=== PATIENT | female | born 1940 | race Caucasian/White ===

== ENCOUNTER 2018-07-31 13:39 | Inpatient (IN) ==
[2018-07-31] MEDS: Amoxicillin 500 MG CAPSULE PO SCH (20:23)
[2018-08-01] MEDS: traMADol 50 MG TABLET PO PRN (05:27)
[2018-08-01 07:49] LABS: Basophils % 0.5 %; Eosinophils # 0.1 K/mcL (0.0-0.6); Eosinophils % 1.2 %; Hematocrit 26.4 % (35.3-44.9); Hemoglobin 8.4 g/dL (11.5-15.4); Immature Granulocytes % 1.4 % (0-4); Lymphocytes # 1.3 K/mcL (0.6-4.6); Lymphocytes % 19.6 %; Mean Corpuscular HGB Conc 31.8 g/dL (31.6-35.5); Mean Corpuscular Hemoglobin 28.9 pg (28.0-33.3); Mean Corpuscular Volume 90.7 fL (83.0-100.0); Monocytes % 15.2 %; Neutrophils # 4.1 K/mcL (1.6-8.9); Nucleated Red Blood Cells 0.5 /100 WBC (0); Platelet Count 232 K/mcL (140-400); Red Blood Count 2.91 M/mcL (3.82-4.97); Red Cell Distribution Width 14.4 % (11.5-14.5); Segmented Neutrophils % 62.1 %; White Blood Count 6.6 K/mcL (4.3-11.1)
[2018-08-01 08:04] LABS: BUN/Creatinine Ratio 15 (6-26); Blood Urea Nitrogen 10 mg/dL (8-23); Calcium 8.5 mg/dL (8.6-10.3); Carbon Dioxide 32 mEq/L (23-29); Chloride 102 mEq/L (98-107); Glucose 98 mg/dL (70-105); Osmolality,Calculated 289 (280-300); Potassium 3.3 mEq/L (3.5-5.1); Sodium 140 mEq/L (136-145); eGFR For African Americans > 60 (> 60); eGFR For Non-African Americans > 60 (> 60)
[2018-08-01] MEDS: *HR* Enoxaparin 40 MG/0.4 ML SYRINGE SQ SCH (09:21)
[2018-08-01] MEDS: Sennosides 8.6 MG TABLET PO SCH (09:21)
[2018-08-01] MEDS: Cyanocobalamin (B-12) 1,000 MCG TABLET PO SCH (09:21)
[2018-08-01] MEDS: Amoxicillin 500 MG CAPSULE PO SCH ×2 (09:21→22:39)
[2018-08-01] MEDS: Ergocalciferol (VIT D2) 50,000 UNIT (1.25MG) CAP PO SCH (09:22)
--- NOTE | 2018-08-01 13:17 | Internal Med History&Physical ---
Date of Encounter: 08/01/18 Time of Encounter: 01:16 Assessment and Plan (1) History of total right hip replacement Current visit: Yes Status: Acute pt will participate in PT OT (2) Malabsorption Current visit: Yes Status: Acute pt has known hx b12 and iron def she has been on these and is anemic will recheck levels she has low K will replace for hypokalemia will check prealbumen and Vit D levels some mechanical eating difficulty will add chop meat diet ensure magic cup functional diarrhea bothersome to pt had lomotil in past will try questran and lactobacillus Qualifiers: Intestinal malabsorption type: other Qualified Code(s): K90.89 - Other intestinal malabsorption Internal Medicine - H&P: HPI Chief complaint: post Right Total hip Replacement Admitted From: Hospital to Hospital Transfer History of present illness: Ms. Ta is a 78 year old female who fell at home and had right total hip replaced. She is transferred here for rehabilitation. She is currently weak and unable to ambulate. She reports she has had some weight loss and she has a history of vitamin deficiencies multiple. 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 Patient reports she had a strangulated ventral hernia that required emergency surgery. She moved from [place] she says previously she had Meals on Wheels but lately has been eating mainly just microwave meals such as [employer] Past[employer]. She does have some functional diarrhea after the surgery. She has had VRE in the urine her Wilkes was removed 3 days ago prior to transfer. She is finishing a course of amoxicillin. She denies dysuria. Her potassium does tend to run low. She is missing her lower teeth and has a denture that is being made. She has a dry mouth it is hard for her to take bites and chew and swallow. She may have some esophageal dysmotility from her history reported. She has chronic stable kidney disease and hypertension. She takes benzodiazepine chronically for anxiety. She has been on B12 and iron she remains anemic with a hemoglobin in the 8 range, no active bleeding. EXam gEN CHRONIC ILL appearing elderly WF HEENT dry mouth no mass noted neck no bruit short thick neck heart reg lungs clear bi abd full soft mild dist scar no umbillicus ext reduced muscle mass bilat no edema Past Med Surg Social Fam HX - Past Medical History Medical history: non-contributory, COPD, hypertension - Past Surgical History Surgical History: non-contributory Additional surgical history: right hip repair - Social History Smoking Status: 2nd Hand Smoke Exposure Smokeless Tobacco Status: No Alcohol use: none Drug use: none Internal Medicine - H&P: Meds Trazodone HCl 100 mg PO HS 11/14/17 [History] ALPRAZolam [Xanax 0.5 MG Tablet] 0.5 mg PO BID PRN 07/31/18 [History] Acetaminophen [Tylenol] 650 mg PO QID PRN 07/31/18 [History] Amoxicillin [Amoxil] 500 mg PO BID 07/31/18 [History] Cyanocobalamin (B-12) [Vitamin B12] 500 mcg PO DAILY 07/31/18 [History] Docusate Sodium [Colace] 100 mg PO PRN PRN 07/31/18 [History] Enoxaparin [Lovenox] 40 mg SQ DAILY 07/31/18 [History] Ergocalciferol (VITAMIN D2) [Vitamin D2] 50,000 unit PO DAILY 07/31/18 [History] Ferrous Sulfate [Iron] 325 mg PO TID 07/31/18 [History] Sennosides [Senna] 8.6 mg PO DAILY 07/31/18 [History] Tramadol HCl [Ultram] 50 mg PO QID PRN 07/31/18 [History] Allergy/AdvReac Type Severity Reaction Status Date / Time oxycodone [Oxycodone] AdvReac Hallucinati Verified 11/14/17 13:54 ng All Systems PM: A 10-system review of systems was performed and is negative for pertinent findin gs except as documented above in the HPI. - Constitutional Vitals: Temp Pulse Resp BP Pulse Ox 97.8 F 91 16 136/78 93 08/01/18 11:35 08/01/18 11:35 08/01/18 11:35 08/01/18 11:35 08/01/18 11:35 Internal Med - H&P Results - Labs CBC & Chem 7: 08/01/18 07:30 08/01/18 07:30 Labs: Short CBC 08/01/18 Range/Units 07:30 WBC 6.6 (4.3-11.1) K/mcL Hgb 8.4 L (11.5-15.4) g/dL Hct 26.4 L (35.3-44.9) % Plt Count 232 (140-400) K/mcL Neutrophils # 4.1 (1.6-8.9) K/mcL BMP 08/01/18 07:30 Sodium 140 Potassium 3.3 L Chloride 102 Carbon Dioxide 32 H BUN 10 Creatinine 0.65 Glucose 98 Calcium 8.5 L
[2018-08-01] MEDS: Acetaminophen 325 MG TABLET PO PRN (17:25)
[2018-08-01] MEDS: Cholestyramine 4 GM POWD.PACK PO SCH (17:27)
[2018-08-01] MEDS: Lactobacillus 1 EACH CAP.SPRINK PO SCH (22:41)
[2018-08-01] MEDS: Ascorbic Acid 500 MG TABLET PO SCH (22:43)
[2018-08-01] MEDS: traZODone 50 MG TABLET PO SCH (22:44)
[2018-08-02] MEDS: ALPRAZolam 0.5 MG TABLET PO PRN (02:27)
[2018-08-02] MEDS: Amoxicillin 500 MG CAPSULE PO SCH ×2 (09:19→21:20)
[2018-08-02] MEDS: Lactobacillus 1 EACH CAP.SPRINK PO SCH ×2 (09:19→21:20)
[2018-08-02] MEDS: Ascorbic Acid 500 MG TABLET PO SCH ×2 (09:19→21:22)
[2018-08-02] MEDS: Cholestyramine 4 GM POWD.PACK PO SCH ×2 (09:19→18:28)
[2018-08-02] MEDS: Sennosides 8.6 MG TABLET PO SCH (09:20)
[2018-08-02] MEDS: Cyanocobalamin (B-12) 1,000 MCG TABLET PO SCH (09:20)
[2018-08-02] MEDS: *HR* Enoxaparin 40 MG/0.4 ML SYRINGE SQ SCH (09:21)
[2018-08-02] MEDS: traMADol 50 MG TABLET PO PRN (09:39)
[2018-08-02 12:14] LABS: % Iron Saturation 15 % (15-50); Iron 46 mcg/dL (50-170); Transferrin 223 mg/dL (203-362)
[2018-08-02] MEDS: Diphenoxylate/Atropine 1 TAB TABLET PO PRN (14:13)
--- NOTE | 2018-08-02 18:16 | Internal Med Progress Note ---
Date of Encounter: 08/02/18 Time of Encounter: 17:00 - Assessment and plan (1) History of total right hip replacement Current Visit: Yes Status: Acute (2) Malabsorption Current Visit: Yes Status: Acute Qualifiers: Intestinal malabsorption type: other Qualified Code(s): K90.89 - Other intestinal malabsorption - Subjective Interval history: (1) History of total right hip replacement Current visit: Yes Status: Acute pt will participate in PT OT doing better with wt bearing had been increase sedentary prior to hip fx (2) Malabsorption Current visit: Yes Status: Acute pt has known hx b12 and iron def she has been on these and is anemic levels checked and ok continue oral replacement add GI protection she has low K will replace for hypokalemia will check prealbumen and Vit D levels some mechanical eating difficulty will add chop meat diet ensure magic cup functional diarrhea bothersome to pt had lomotil in past just added questran and lactobacillus Qualifiers: Intestinal malabsorption type: other Qualified Code(s): K90.89 - Other intestinal malabsorption Interval hx Ms. Ta is a 78 year old female who fell at home and had right total hip replaced. She is transferred here for rehabilitation. She is currently weak and unable to ambulate. She reports she has had some weight loss and she has a history of vitamin deficiencies multiple. 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 Patient reports she had a strangulated ventral hernia that required emergency surgery. She moved from [place] she says previously she had [employer]als [employer] Wheels but lately has been eating mainly just microwave meals such as [employer]. She does have some functional diarrhea after the surgery. She has had VRE in the urine her Wilkes was removed 3 days ago prior to transfer. She is finishing a course of amoxicillin. She denies dysuria. Her potassium does tend to run low. She is missing her lower teeth and has a denture that is being made. She has a dry mouth it is hard for her to take bites and chew and swallow. She may have some esophageal dysmotility from her history reported. She has chronic stable kidney disease and hypertension. She takes benzodiazepine chronically for anxiety. She has been on B12 and iron she remains anemic with a hemoglobin in the 8 range, no active bleeding. Legal blindness and Hard of hearing. She is feeling somewhat stronger today did eat better on ensure now also EXAM GENERAL CHRONIC ILL appearing elderly WF more interactive today HEENT dry mouth no mass noted neck no bruit short thick neck heart reg lungs clear bi abd full soft mild dist scar no umbillicus ext reduced muscle mass bilat no edema - Constitutional Vitals: Temp Pulse Resp BP Pulse Ox 98.3 F 83 16 175/78 93 08/02/18 09:00 08/02/18 09:00 08/02/18 09:00 08/02/18 09:00 08/02/18 09:00 Internal Medicine: Result - Labs CBC & Chem 7: 08/01/18 07:30 08/01/18 07:30 Consult Discharge Plan - Plan Referrals: NONE,PCP [Primary Care Provider] -
[2018-08-02] MEDS: traZODone 50 MG TABLET PO SCH (21:20)
[2018-08-03 06:18] LABS: Hematocrit 27.6 % (35.3-44.9); Hemoglobin 8.4 g/dL (11.5-15.4); Mean Corpuscular HGB Conc 30.4 g/dL (31.6-35.5); Mean Corpuscular Hemoglobin 28.9 pg (28.0-33.3); Mean Corpuscular Volume 94.8 fL (83.0-100.0); Mean Platelet Volume 10.2 fL (9.4-12.4); Platelet Count 255 K/mcL (140-400); Red Blood Count 2.91 M/mcL (3.82-4.97); Red Cell Distribution Width 15.9 % (11.5-14.5); White Blood Count 6.8 K/mcL (4.3-11.1)
[2018-08-03 06:52] LABS: BUN/Creatinine Ratio 14 (6-26); Blood Urea Nitrogen 11 mg/dL (8-23); Calcium 8.5 mg/dL (8.6-10.3); Carbon Dioxide 33 mEq/L (23-29); Chloride 103 mEq/L (98-107); Glucose 74 mg/dL (70-105); Osmolality,Calculated 290 (280-300); Potassium 3.8 mEq/L (3.5-5.1); Sodium 141 mEq/L (136-145); eGFR For African Americans > 60 (> 60); eGFR For Non-African Americans > 60 (> 60)
[2018-08-03] MEDS: Cyanocobalamin (B-12) 1,000 MCG TABLET PO SCH (10:11)
[2018-08-03] MEDS: Ascorbic Acid 500 MG TABLET PO SCH ×2 (10:11→20:57)
[2018-08-03] MEDS: Lactobacillus 1 EACH CAP.SPRINK PO SCH ×2 (10:12→20:56)
[2018-08-03] MEDS: *HR* Enoxaparin 40 MG/0.4 ML SYRINGE SQ SCH (10:12)
[2018-08-03] MEDS: Sennosides 8.6 MG TABLET PO SCH (10:12)
[2018-08-03] MEDS: Cholestyramine 4 GM POWD.PACK PO SCH ×2 (10:12→16:46)
[2018-08-03] MEDS: Amoxicillin 500 MG CAPSULE PO SCH ×3 (10:32→20:56)
--- NOTE | 2018-08-03 11:47 | Internal Med Progress Note ---
Date of Encounter: 08/03/18 Time of Encounter: 11:41 - Assessment and plan (1) Hypertension Current Visit: Yes Status: Acute Assessment and plan: controlled with current meds. monitor BP Qualifiers: Hypertension type: essential hypertension Qualified Code(s): I10 - Essent ial (primary) hypertension (2) Iron deficiency anemia Current Visit: Yes Status: Acute Assessment and plan: stable. monitor. continue ferrous sulfate. Qualifiers: Iron deficiency anemia type: unspecified iron deficiency Qualified Code(s): D50.9 - Iron deficiency anemia, unspecified (3) History of total right hip replacement Current Visit: Yes Status: Acute Assessment and plan: continue PT, OT. will follow progress. - Time Spent With Patient less than 15 minutes - Subjective Interval history: Patient participating well with therapy. States pain is controlled to right hip. Denies any complaints at this time. Denies fever, chills, nausea vomiting or diarrhea. Denies shortness of breath or chest pain. Maintaining appetite and hydration. - Constitutional Vitals: Temp Pulse Resp BP Pulse Ox 97.9 F 91 15 109/61 95 08/03/18 09:01 08/03/18 09:33 08/03/18 09:33 08/03/18 09:33 08/02/18 21:25 General appearance: Present: cooperative, A&O X 3, pleasant, no acute distress, answers questions appropriately - Head Head exam: Present: atraumatic, normocephalic - Eye Eye exam: Present: PERRL, conjuntiva pink, sclera anicteric Pupils: Present: PERRL - Neck Neck exam general surgery: Present: supple, trachea midline. Absent: lymphadenopathy - Respiratory Respiratory exam: Present: CTAB. Absent: accessory muscle use, rales, rhonchi, wheezes - Cardiovascular Cardiovascular exam: Present: RRR, +S1, +S2. Absent: diastolic murmur, gallop, rubs, systolic murmur - GI/Abdominal GI/Abdominal exam: Present: normal bowel sounds, soft, no peritoneal signs. Absent: distended, tenderness - Extremities Exam Extremities exam: Present: warm, radial pulses palpable and symmetrical. Absen t: calf tenderness, cyanotic, pedal edema - Incison Comments: Right hip incision dressing dry and intact. - Neurological Exam Neurological exam: Present: CN II-XII intact, oriented X3, no focal deficits. Absent: pronater drift, facial droop, speech deficit - Skin Skin exam: Present: dry, intact Internal Medicine: Result - Labs CBC & Chem 7: 08/03/18 05:15 08/03/18 05:15 Labs: Short CBC 08/03/18 Range/Units 05:15 WBC 6.8 (4.3-11.1) K/mcL Hgb 8.4 L (11.5-15.4) g/dL Hct 27.6 L (35.3-44.9) % Plt Count 255 (140-400) K/mcL BMP 08/03/18 05:15 Sodium 141 Potassium 3.8 Chloride 103 Carbon Dioxide 33 H BUN 11 Creatinine 0.80 Glucose 74 Calcium 8.5 L Consult Discharge Plan - Plan Referrals: NONE,PCP [Primary Care Provider] -
[2018-08-03] MEDS: traZODone 50 MG TABLET PO SCH (20:56)
[2018-08-04] MEDS: traMADol 50 MG TABLET PO PRN ×3 (00:59→17:27)
[2018-08-04 05:35] LABS: Hematocrit 23.6 % (35.3-44.9); Hemoglobin 7.2 g/dL (11.5-15.4); Mean Corpuscular HGB Conc 30.5 g/dL (31.6-35.5); Mean Corpuscular Hemoglobin 29.1 pg (28.0-33.3); Mean Corpuscular Volume 95.5 fL (83.0-100.0); Mean Platelet Volume 9.9 fL (9.4-12.4); Platelet Count 260 K/mcL (140-400); Red Blood Count 2.47 M/mcL (3.82-4.97); Red Cell Distribution Width 16.4 % (11.5-14.5); White Blood Count 7.3 K/mcL (4.3-11.1)
[2018-08-04 05:50] LABS: BUN/Creatinine Ratio 16 (6-26); Blood Urea Nitrogen 14 mg/dL (8-23); Calcium 8.4 mg/dL (8.6-10.3); Carbon Dioxide 31 mEq/L (23-29); Chloride 106 mEq/L (98-107); Glucose 97 mg/dL (70-105); Osmolality,Calculated 288 (280-300); Potassium 4.2 mEq/L (3.5-5.1); Sodium 139 mEq/L (136-145); eGFR For African Americans > 60 (> 60); eGFR For Non-African Americans > 60 (> 60)
[2018-08-04] MEDS: Lactobacillus 1 EACH CAP.SPRINK PO SCH ×2 (10:06→20:42)
[2018-08-04] MEDS: Amoxicillin 500 MG CAPSULE PO SCH ×2 (10:06→20:42)
[2018-08-04] MEDS: *HR* Enoxaparin 40 MG/0.4 ML SYRINGE SQ SCH (10:06)
[2018-08-04] MEDS: Cholestyramine 4 GM POWD.PACK PO SCH ×2 (10:06→17:24)
[2018-08-04] MEDS: Sennosides 8.6 MG TABLET PO SCH (10:07)
[2018-08-04] MEDS: Cyanocobalamin (B-12) 1,000 MCG TABLET PO SCH (10:07)
[2018-08-04] MEDS: Ascorbic Acid 500 MG TABLET PO SCH ×2 (10:07→20:42)
--- NOTE | 2018-08-04 12:44 | Internal Med Progress Note ---
Date of Encounter: 08/04/18 Time of Encounter: 12:41 - Assessment and plan (1) History of total right hip replacement Current Visit: Yes Status: Acute Assessment and plan: No acute issues. Patient's right hip surgical incision appears healthy and intact. Patient is participating in physical therapy and progressing well. Continued complaints of slight pain which increases with mobilization but states pain tolerable with current medications. (2) Hypertension Current Visit: Yes Status: Acute Assessment and plan: Vital signs stable. We will continue with current medications. Qualifiers: Hypertension type: essential hypertension Qualified Code(s): I10 - Essential (primary) hypertension (3) Iron deficiency anemia Current Visit: Yes Status: Acute Assessment and plan: Patient has had a decrease in her hemoglobin of 1 g since admission to 7.2. Patient currently has been asymptomatic to her anemia with vital signs being stable and patient denied any dyspnea. We will recheck patient's hemoglobin in the morning. We will guaiac stools. We will continue with PPI. Patient with recent postoperative anemia was likely iron deficiency through blood loss Qualifiers: Iron deficiency anemia type: unspecified iron deficiency Qualified Code(s): D50.9 - Iron deficiency anemia, unspecified - Time Spent With Patient less than 15 minutes - Subjective Interval history: Patient appears relaxed, but states that she has intermittent pain to her right hip surgical site which increases during mobilization and therapy. Patient states that her pain is tolerable with current medications. Denies any dyspnea. Denies any other issues - Constitutional Vitals: Temp Pulse Resp BP Pulse Ox 98.2 F 69 16 126/67 95 08/04/18 07:00 08/04/18 07:00 08/04/18 07:00 08/04/18 07:00 08/04/18 07:00 General appearance: Present: cooperative, A&O X 3, pleasant, no acute distress, answers questions appropriately - Head Head exam: Present: atraumatic, normocephalic - Eye Eye exam: Present: PERRL, conjuntiva pink, sclera anicteric Pupils: Present: PERRL - Neck Neck exam general surgery: Present: supple, trachea midline. Absent: lym phadenopathy - Respiratory Respiratory exam: Present: CTAB. Absent: accessory muscle use, rales, rhonchi, wheezes - Cardiovascular Cardiovascular exam: Present: RRR, +S1, +S2. Absent: diastolic murmur, gallop, rubs, systolic murmur - GI/Abdominal GI/Abdominal exam: Present: normal bowel sounds, soft, no peritoneal signs. Absent: distended, tenderness - Extremities Exam Extremities exam: Present: warm, radial pulses palpable and symmetrical. Absent: calf tenderness, cyanotic, pedal edema Additional comments: Right hip surgical incision appears healthy and intact. No edema noted. No ecchymosis or erythema. - Neurological Exam Neurological exam: Present: CN II-XII intact, oriented X3, no focal deficits. Absent: pronater drift, facial droop, speech deficit - Skin Skin exam: Present: dry, intact Internal Medicine: Result - Labs CBC & Chem 7: 08/04/18 05:20 08/04/18 05:20 Labs: Short CBC 08/04/18 Range/Units 05:20 WBC 7.3 (4.3-11.1) K/mcL Hgb 7.2 L (11.5-15.4) g/dL Hct 23.6 L (35.3-44.9) % Plt Count 260 (140-400) K/mcL [facility] 08/04/18 05:20 Sodium 139 Potassium 4.2 Chloride 106 Carbon Dioxide 31 H BUN 14 Creatinine 0.88 Glucose 97 Calcium 8.4 L Consult Discharge Plan - Plan Referrals: NONE,PCP [Primary Care Provider] -
[2018-08-04] MEDS: traZODone 50 MG TABLET PO SCH (20:41)
[2018-08-05] MEDS: traMADol 50 MG TABLET PO PRN ×3 (05:33→20:26)
[2018-08-05 07:43] LABS: Hematocrit 28.3 % (35.3-44.9); Hemoglobin 8.6 g/dL (11.5-15.4); Mean Corpuscular HGB Conc 30.4 g/dL (31.6-35.5); Mean Corpuscular Hemoglobin 29.6 pg (28.0-33.3); Mean Corpuscular Volume 97.3 fL (83.0-100.0); Mean Platelet Volume 9.9 fL (9.4-12.4); Platelet Count 367 K/mcL (140-400); Red Blood Count 2.91 M/mcL (3.82-4.97); Red Cell Distribution Width 17.2 % (11.5-14.5); White Blood Count 9.6 K/mcL (4.3-11.1)
[2018-08-05 07:54] LABS: Alanine Aminotransferase 5 Units/L (7-52); Albumin 2.9 g/dL (3.5-5.7); Albumin/Globulin Ratio 1.3 (1.1-2.2); Alkaline Phosphatase 91 Units/L (34-104); Aspartate Amino Transferase 11 Units/L (13-39); BUN/Creatinine Ratio 14 (6-26); Bilirubin,Total 1.1 mg/dL (0.3-1.0); Blood Urea Nitrogen 14 mg/dL (8-23); Calcium 8.8 mg/dL (8.6-10.3); Carbon Dioxide 30 mEq/L (23-29); Chloride 102 mEq/L (98-107); Globulin 2.3 g/dL (2.4-3.5); Glucose 78 mg/dL (70-105); Magnesium 1.5 mg/dL (1.6-2.6); Osmolality,Calculated 283 (280-300); Potassium 4.1 mEq/L (3.5-5.1); Sodium 137 mEq/L (136-145); Total Protein 5.2 g/dL (6.4-8.9); eGFR For African Americans > 60 (> 60); eGFR For Non-African Americans 53 (> 60)
[2018-08-05] MEDS: Cholestyramine 4 GM POWD.PACK PO SCH ×2 (08:07→16:42)
[2018-08-05] MEDS: *HR* Enoxaparin 40 MG/0.4 ML SYRINGE SQ SCH (08:08)
[2018-08-05] MEDS: Lactobacillus 1 EACH CAP.SPRINK PO SCH ×2 (08:08→20:26)
[2018-08-05] MEDS: Amoxicillin 500 MG CAPSULE PO SCH (08:08)
[2018-08-05] MEDS: Ascorbic Acid 500 MG TABLET PO SCH ×2 (08:09→20:27)
[2018-08-05] MEDS: Sennosides 8.6 MG TABLET PO SCH (08:09)
[2018-08-05] MEDS: Cyanocobalamin (B-12) 1,000 MCG TABLET PO SCH (08:09)
[2018-08-05] MEDS ORDERED: Ondansetron ODT 4 MG TAB.RAPDIS SL PRN (10:37)
--- NOTE | 2018-08-05 17:37 | Internal Med Progress Note ---
Date of Encounter: 08/05/18 Time of Encounter: 17:36 - Assessment and plan (1) History of total right hip replacement Current Visit: Yes Status: Acute Assessment and plan: No acute issues. Patient's right hip surgical incision appears healthy and intact. Patient is participating in physical therapy and progressing well. Continued complaints of slight pain which increases with mobilization but states pain tolerable with current medications. (2) Hypertension Current Visit: Yes Status: Acute Assessment and plan: Vital signs stable. We will continue with current medications. Qualifiers: Hypertension type: essential hypertension Qualified Code(s): I10 - Essential (primary) hypertension (3) Iron deficiency anemia Current Visit: Yes Status: Acute Assessment and plan: Patient has had a anemia since her surgery. Patient's hemoglobin history of 7.2 and today it has increased to 8.6. Patient continues to show no signs of symptoms of anemia. We will continue with current therapy. Vital signs are stable. We will repeat CBC in 2 days Qualifiers: Iron deficiency anemia type: unspecified iron deficiency Qualified Code(s): D50.9 - Iron deficiency anemia, unspecified - Time Spent With Patient less than 15 minutes - Subjective Interval history: Patient appears relaxed, but states that she has intermittent pain to her right hip surgical site which increases during mobilization and therapy. Patient states that her pain is tolerable with current medications. Denies any dyspnea. Denies any other issues - Constitutional Vitals: Temp Pulse Resp BP Pulse Ox 97.7 F 80 18 130/69 97 08/05/18 12:35 08/05/18 12:35 08/05/18 12:35 08/05/18 12:35 08/05/18 12:35 General appearance: Present: cooperative, A&O X 3, pleasant, no acute distress, answers questions appropriately - Head Head exam: Present: atraumatic, normocephalic - Eye Eye exam: Present: PERRL, conjuntiva pink, sclera anicteric Pupils: Present: PERRL - Neck Neck exam general surgery: Present: supple, trachea midline. Absent: lymphadenopathy - Respiratory Respiratory exam: Present: CTAB. Absent: accessory muscle use, rales, rhonchi, wheezes - Cardiovascular Cardiovascular exam: Present: RRR, +S1, +S2. Absent: diastolic murmur, gallop, rubs, systolic murmur - GI/Abdominal GI/Abdominal exam: Present: normal bowel sounds, soft, no peritoneal signs. Absent: distended, tenderness - Extremities Exam Extremities exam: Present: warm, radial pulses palpable and symmetrical. Absent: calf tenderness, cyanotic, pedal edema Additional comments: Right hip surgical incision appears healthy and intact. No ecchymosis or edema noted - Neurological Exam Neurological exam: Present: CN II-XII intact, oriented X3, no focal deficits. Absent: pronater drift, facial droop, speech deficit - Skin Skin exam: Present: dry, intact Internal Medicine: Result - Labs CBC & Chem 7: 08/05/18 07:25 08/05/18 07:25 Labs: Short CBC 08/05/18 Range/Units 07:25 WBC 9.6 (4.3-11.1) K/mcL Hgb 8.6 L (11.5-15.4) g/dL Hct 28.3 L (35.3-44.9) % Plt Count 367 (140-400) K/mcL BMP 08/05/18 07:25 Sodium 137 Potassium 4.1 Chloride 102 Carbon Dioxide 30 H BUN 14 Creatinine 1.00 Glucose 78 Calcium 8.8 Liver Function 08/05/18 Range/Units 07:25 Total Bilirubin 1.1 H (0.3-1.0) mg/dL AST 11 L (13-39) Units/L ALT 5 L (7-52) Units/L Alkaline Phosphatase 91 (34-104) Units/L Albumin 2.9 L (3.5-5.7) g/dL Consult Discharge Plan - Plan Referrals: NONE,PCP [Primary Care Provider] -
[2018-08-05] MEDS: traZODone 50 MG TABLET PO SCH (20:27)
[2018-08-05] MEDS: ALPRAZolam 0.5 MG TABLET PO PRN (20:27)
[2018-08-06] MEDS: Cyanocobalamin (B-12) 1,000 MCG TABLET PO SCH (08:23)
[2018-08-06] MEDS: Sennosides 8.6 MG TABLET PO SCH (08:23)
[2018-08-06] MEDS: Cholestyramine 4 GM POWD.PACK PO SCH ×2 (08:23→16:57)
[2018-08-06] MEDS: Lactobacillus 1 EACH CAP.SPRINK PO SCH ×2 (08:23→21:40)
[2018-08-06] MEDS: Ascorbic Acid 500 MG TABLET PO SCH ×2 (08:23→21:40)
[2018-08-06] MEDS: *HR* Enoxaparin 40 MG/0.4 ML SYRINGE SQ SCH (08:24)
--- NOTE | 2018-08-06 10:06 | Internal Med Progress Note ---
Date of Encounter: 08/06/18 Time of Encounter: 10:05 - Assessment and plan (1) History of total right hip replacement Current Visit: Yes Status: Acute Assessment and plan: No acute issues. Patient's right hip surgical incision appears healthy and intact. Patient is participating in physical therapy and progressing well. Continued complaints of slight pain which increases with mobilization but states pain tolerable with current medications. (2) Hypertension Current Visit: Yes Status: Acute Assessment and plan: Vital signs stable. We will continue with current medications. Qualifiers: Hypertension type: essential hypertension Qualified Code(s): I10 - Essential (primary) hypertension (3) Iron deficiency anemia Current Visit: Yes Status: Acute Assessment and plan: Patient has had a anemia since her surgery. Patient's hemoglobin history of 7.2 and today it has increased to 8.6. Patient continues to show no signs of symptoms of anemia. We will continue with current therapy. Vital signs are stable. We will repeat CBC in the morning Qualifiers: Iron deficiency anemia type: unspecified iron deficiency Qualified Code(s): D50.9 - Iron deficiency anemia, unspecified - Time Spent With Patient less than 15 minutes - Subjective Interval history: Patient appears relaxed, but states that she has intermittent pain to her right hip surgical site which increases during mobilization and therapy. Patient states that her pain is tolerable with current medications. Denies any dyspnea. Denies any other issues - Constitutional Vitals: Temp Pulse Resp BP Pulse Ox 97.9 F 84 16 119/67 95 08/06/18 07:00 08/06/18 07:00 08/06/18 07:00 08/06/18 07:00 08/06/18 07:00 General appearance: Present: cooperative, A&O X 3, pleasant, no acute distress, answers questions appropriately - Head Head exam: Present: atraumatic, normocephalic - Eye Eye exam: Present: PERRL, conjuntiva pink, sclera anicteric Pupils: Present: PERRL - Neck Neck exam general surgery: Present: supple, trachea midline. Absent: lymphadenopathy - Respiratory Respiratory exam: Present: CTAB. Absent: accessory muscle use, rales, rhonchi, wheezes - Cardiovascular Cardiovascular exam: Present: RRR, +S1, +S2. Absent: diastolic murmur, gallop, rubs, systolic murmur - GI/Abdominal GI/Abdominal exam: Present: normal bowel sounds, soft, no peritoneal signs. Absent: distended, tenderness - Extremities Exam Extremities exam: Present: warm, radial pulses palpable and symmetrical. Absent: calf tenderness, cyanotic, pedal edema Additional comments: Right hip surgical incision appears healthy and intact. No edema or ecchymosis noted. - Neurological Exam Neurological exam: Present: CN II-XII intact, oriented X3, no focal deficits. Absent: pronater drift, facial droop, speech deficit - Skin Skin exam: Present: dry, intact Internal Medicine: Result - Labs CBC & Chem 7: 08/05/18 07:25 08/05/18 07:25 Consult Discharge Plan - Plan Referrals: NONE,PCP [Primary Care Provider] -
[2018-08-06] MEDS: traMADol 50 MG TABLET PO PRN (11:22)
[2018-08-06] MEDS: Acetaminophen 325 MG TABLET PO PRN ×2 (13:54→21:40)
[2018-08-06] MEDS: ALPRAZolam 0.5 MG TABLET PO PRN (21:41)
[2018-08-06] MEDS: Diphenoxylate/Atropine 1 TAB TABLET PO PRN (21:41)
[2018-08-06] MEDS: traZODone 50 MG TABLET PO SCH (21:41)
[2018-08-07 05:07] LABS: Hematocrit 28.4 % (35.3-44.9); Hemoglobin 8.6 g/dL (11.5-15.4); Mean Corpuscular HGB Conc 30.3 g/dL (31.6-35.5); Mean Corpuscular Hemoglobin 29.6 pg (28.0-33.3); Mean Corpuscular Volume 97.6 fL (83.0-100.0); Mean Platelet Volume 9.7 fL (9.4-12.4); Platelet Count 365 K/mcL (140-400); Red Blood Count 2.91 M/mcL (3.82-4.97); Red Cell Distribution Width 17.1 % (11.5-14.5)
[2018-08-07 05:20] LABS: BUN/Creatinine Ratio 18 (6-26); Blood Urea Nitrogen 17 mg/dL (8-23); Calcium 8.6 mg/dL (8.6-10.3); Carbon Dioxide 28 mEq/L (23-29); Chloride 104 mEq/L (98-107); Glucose 67 mg/dL (70-105); Magnesium 1.7 mg/dL (1.6-2.6); Osmolality,Calculated 286 (280-300); Potassium 4.1 mEq/L (3.5-5.1); Sodium 138 mEq/L (136-145); eGFR For African Americans > 60 (> 60); eGFR For Non-African Americans 57 (> 60)
[2018-08-07] MEDS: Ascorbic Acid 500 MG TABLET PO SCH ×2 (08:45→20:28)
[2018-08-07] MEDS: Cholestyramine 4 GM POWD.PACK PO SCH ×2 (08:45→17:04)
[2018-08-07] MEDS: Sennosides 8.6 MG TABLET PO SCH (08:46)
[2018-08-07] MEDS: Cyanocobalamin (B-12) 1,000 MCG TABLET PO SCH (08:46)
[2018-08-07] MEDS: Lactobacillus 1 EACH CAP.SPRINK PO SCH ×2 (08:47→20:27)
[2018-08-07] MEDS: *HR* Enoxaparin 40 MG/0.4 ML SYRINGE SQ SCH (08:47)
[2018-08-07] MEDS: traMADol 50 MG TABLET PO PRN (09:30)
--- NOTE | 2018-08-07 11:49 | Internal Med Progress Note ---
Date of Encounter: 08/07/18 Time of Encounter: 11:46 - Assessment and plan (1) History of total right hip replacement Current Visit: Yes Status: Acute Assessment and plan: No acute issues. Patient's right hip surgical incision appears healthy and intact. Patient is participating in physical therapy and progressing well. Continued complaints of slight pain which increases with mobilization but states pain tolerable with current medications. (2) Hypertension Current Visit: Yes Status: Acute Assessment and plan: Vital signs stable. We will continue with current medications. Qualifiers: Hypertension type: essential hypertension Qualified Code(s): I10 - Essential (primary) hypertension (3) Iron deficiency anemia Current Visit: Yes Status: Acute Assessment and plan: Patient has had a anemia since her surgery. Patient's hemoglobin history of 7.2 and today remains 8.6. Patient continues to show no signs of symptoms of anemia. We will continue with current therapy. Vital signs are stable. We will repeat CBC in two days Qualifiers: Iron deficiency anemia type: unspecified iron deficiency Qualified Code(s): D50.9 - Iron deficiency anemia, unspecified - Time Spent With Patient less than 15 minutes - Subjective Interval history: Patient appears relaxed, but states that she has intermittent pain to her right hip surgical site which increases during mobilization and therapy. Patient states that her pain is tolerable with current medications. Denies any dyspnea. Denies any other issues and states that physical therapy has been progressing well for her - Constitutional Vitals: Temp Pulse Resp BP Pulse Ox 97.5 F L 86 16 115/72 95 08/07/18 07:00 08/07/18 07:00 08/07/18 07:00 08/07/18 07:00 08/07/18 07:00 General appearance: Present: cooperative, A&O X 3, pleasant, no acute distress, answers questions appropriately - Head Head exam: Present: atraumatic, normocephalic - Eye Eye exam: Present: PERRL, conjuntiva pink, sclera anicteric Pupils: Present: PERRL - Neck Neck exam general surgery: Present: supple, trachea midline. Absent: lymphadenopathy - Respiratory Respiratory exam: Present: decreased breath sounds, CTAB. Absent: accessory muscle use, rales, rhonchi, wheezes - Cardiovascular Cardiovascular exam: Present: RRR, +S1, +S2. Absent: diastolic murmur, gallop, rubs, systolic murmur - GI/Abdominal GI/Abdominal exam: Present: normal bowel sounds, soft, no peritoneal signs. Absent: distended, tenderness - Extremities Exam Extremities exam: Present: warm, radial pulses palpable and symmetrical. Absent: calf tenderness, cyanotic, pedal edema Additional comments: right hip surgical incision appears healthy and intact. No ecchymosis or edema noted. - Neurological Exam Neurological exam: Present: CN II-XII intact, oriented X3, no focal deficits. Absent: pronater drift, facial droop, speech deficit - Skin Skin exam: Present: dry, intact Internal Medicine: Result - Labs CBC & Chem 7: 08/07/18 04:48 08/07/18 04:48 Labs: Short CBC 08/07/18 Range/Units 04:48 WBC 7.0 (4.3-11.1) K/mcL Hgb 8.6 L (11.5-15.4) g/dL Hct 28.4 L (35.3-44.9) % Plt Count 365 (140-400) K/mcL [facility] 08/07/18 04:48 Sodium 138 Potassium 4.1 Chloride 104 Carbon Dioxide 28 BUN 17 Creatinine 0.95 Glucose 67 L Calcium 8.6 Consult Discharge Plan - Plan Referrals: NONE,PCP [Primary Care Provider] -
[2018-08-07] MEDS: Acetaminophen 325 MG TABLET PO PRN (11:57)
[2018-08-07] MEDS: traZODone 50 MG TABLET PO SCH (20:27)
[2018-08-08] MEDS: Cholestyramine 4 GM POWD.PACK PO SCH ×2 (05:39→17:45)
[2018-08-08] MEDS: Ascorbic Acid 500 MG TABLET PO SCH ×2 (09:38→20:14)
[2018-08-08] MEDS: Cyanocobalamin (B-12) 1,000 MCG TABLET PO SCH (09:38)
[2018-08-08] MEDS: *HR* Enoxaparin 40 MG/0.4 ML SYRINGE SQ SCH (09:39)
[2018-08-08] MEDS: Lactobacillus 1 EACH CAP.SPRINK PO SCH ×2 (09:39→20:13)
[2018-08-08] MEDS: Sennosides 8.6 MG TABLET PO SCH (09:39)
[2018-08-08] MEDS: traMADol 50 MG TABLET PO PRN ×2 (09:43→20:13)
[2018-08-08] MEDS: Ergocalciferol (VIT D2) 50,000 UNIT (1.25MG) CAP PO SCH (09:43)
[2018-08-08] MEDS: traZODone 50 MG TABLET PO SCH (20:13)
[2018-08-08] MEDS: Diphenoxylate/Atropine 1 TAB TABLET PO PRN (20:13)
[2018-08-09] MEDS: Cholestyramine 4 GM POWD.PACK PO SCH ×2 (05:20→16:13)
[2018-08-09] MEDS: *HR* Enoxaparin 40 MG/0.4 ML SYRINGE SQ SCH (09:51)
[2018-08-09] MEDS: Sennosides 8.6 MG TABLET PO SCH (09:52)
[2018-08-09] MEDS: Cyanocobalamin (B-12) 1,000 MCG TABLET PO SCH (09:52)
[2018-08-09] MEDS: Lactobacillus 1 EACH CAP.SPRINK PO SCH ×2 (09:52→20:03)
[2018-08-09] MEDS: Ascorbic Acid 500 MG TABLET PO SCH ×2 (09:53→20:03)
--- NOTE | 2018-08-09 15:02 | Internal Med Progress Note ---
Date of Encounter: 08/09/18 Time of Encounter: 17:32 - Assessment and plan (1) History of total right hip replacement Current Visit: Yes Status: Acute (2) Malabsorption Current Visit: Yes Status: Acute Qualifiers: Intestinal malabsorption type: other Qualified Code(s): K90.89 - Other intestinal malabsorption - Subjective Interval history: (1) History of total right hip replacement Current visit: Yes Status: Acute pt will participate in PT OT doing better with wt bearing had been increase sedentary prior to hip fx (2) Malabsorption Current visit: Yes Status: Acute pt has known hx b12 and iron def she has been on these and is anemic levels checked and ok continue oral replacement add GI protection she has low K will replace for hypokalemia will check prealbumen and Vit D levels some mechanical eating difficulty will add chop meat diet ensure magic cup functional diarrhea bothersome to pt had lomotil in past just added questran and lactobacillus Qualifiers: Intestinal malabsorption type: other Qualified Code(s): K90.89 - Other intestinal malabsorption Interval hx Ms. Ta is a 78 year old female who fell at home and had right total hip replaced. She is transferred here for rehabilitation. She is currently weak and unable to ambulate. She reports she has had some weight loss and she has a history of vitamin deficiencies multiple. 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 Patient reports she had a strangulated ventral hernia that required emergency surgery. [place] she says previously she had Meals on Wheels but lately has been eating mainly just microwave meals such as [employer] Past[employer]. She does have some functional diarrhea after the surgery. She has had VRE in the urine her Wilkes was removed 3 days ago prior to transfer. She is finishing a course of amoxicillin. She denies dysuria. Her potassium does tend to run low. She is missing her lower teeth and has a denture that is being made. She has a dry mouth it is hard for her to take bites and chew and swallow. She may have some esophageal dysmotility from her history reported. She has chronic stable kidney disease and hypertension. She takes benzodiazepine chronically for anxiety. She has been on B12 and iron she remains anemic with a hemoglobin in the 8 range, no active bleeding. Legal blindness and Hard of hearing. She is feeling somewhat stronger today did eat better on ensure now also EXAM GENERAL CHRONIC ILL appearing elderly WF more interactive today HEENT dry mouth no mass noted neck no bruit short thick neck heart reg lungs clear bi abd full soft mild dist scar no umbillicus ext reduced muscle mass bilat no edema - Constitutional Vitals: Temp Pulse Resp BP Pulse Ox 97.6 F 74 16 110/66 92 08/09/18 06:46 08/09/18 06:46 08/09/18 06:46 08/09/18 06:46 08/09/18 06:46 General appearance: Present: cooperative, A&O X 3, pleasant, no acute distress, answers questions appropriately Internal Medicine: Result - Labs CBC & Chem 7: 08/07/18 04:48 08/07/18 04:48 Consult Discharge Plan - Plan Referrals: NONE,PCP [Primary Care Provider] -
[2018-08-09] MEDS: traMADol 50 MG TABLET PO PRN (16:13)
[2018-08-09] MEDS ORDERED: Hydrocortisone Acetate 25 MG RECTAL SUPPOSITORY RC PRN (16:43)
--- NOTE | 2018-08-09 16:55 | Internal Med Progress Note ---
Date of Encounter: 08/09/18 Time of Encounter: 15:40 - Assessment and plan (1) History of total right hip replacement Current Visit: Yes Status: Acute (2) Malabsorption Current Visit: Yes Status: Acute Qualifiers: Intestinal malabsorption type: other Qualified Code(s): K90.89 - Other intestinal malabsorption - Subjective Interval history: (1) History of total right hip replacement Current visit: Yes Status: Acute debilitated pt will participating in PT OT doing better with wt bearing had been increase sedentary prior to hip fx she is motivated (2) Malabsorption Current visit: Yes Status: Acute hx of large portion small bowl urgently removed for perforation in past pt has known hx b12 and iron def she has been on these and has been anemic levels followed continue oral replacement added GI protection she has had hx of low K will replace for hypokalemia continue protein supp and extra Vit D some chronic mechanical eating difficulty jaw osteoporosis and missing teeth will add chop meat diet ensure magic cup functional diarrhea bothersome to pt had lomotil in past questran and lactobacillus Qualifiers: Intestinal malabsorption type: other Qualified Code(s): K90.89 - Other intestinal malabsorption Interval hx Ms. Ta is a 78 year old female who fell at home and had right total hip replaced. She is transferred here for rehabilitation. She came here very weak and unsteady Reported had been mainly sitting in chair at home for long time. She is working hard at PT She reports she has had some weight loss and she has a history of vitamin deficiencies multiple. 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 Patient reports she had a strangulated ventral hernia that required geronimo gency surgery. She moved from [place] she says previously she had Meals on Wheels but lately has been eating mainly just microwave meals such as [employer]. She does have some functional diarrhea after the surgery. She has had VRE in the urine her Wilkes was removed prior to transfer. She has chronic stable kidney disease and hypertension. She takes benzodiazepine chronically for anxiety. She has been on B12 and iron she remains anemic Legal blindness and Hard of hearing. She is feeling somewhat stronger today is eating much better EXAM GENERAL CHRONIC ILL appearing elderly WF more interactive and looks better HEENT dry mouth no mass noted neck no bruit short thick neck heart reg lungs clear bi abd full soft mild dist scar no umbillicus ext reduced muscle mass bilat no edema - Constitutional Vitals: Temp Pulse Resp BP Pulse Ox 97.6 F 74 16 110/66 92 08/09/18 06:46 08/09/18 06:46 08/09/18 06:46 08/09/18 06:46 08/09/18 06:46 General appearance: Present: cooperative, A&O X 3, pleasant, no acute distress, answers questions appropriately Internal Medicine: Result - Labs CBC & Chem 7: 08/07/18 04:48 08/07/18 04:48 Consult Discharge Plan - Plan Referrals: NONE,PCP [Primary Care Provider] -
[2018-08-09] MEDS: traZODone 50 MG TABLET PO SCH (20:03)
[2018-08-10 06:31] LABS: Basophils # 0.1 K/mcL (0.0-0.2); Basophils % 1.2 %; Eosinophils # 0.1 K/mcL (0.0-0.6); Eosinophils % 1.6 %; Hematocrit 29.8 % (35.3-44.9); Hemoglobin 9.2 g/dL (11.5-15.4); Immature Granulocytes % 0.7 % (0-4); Lymphocytes # 1.1 K/mcL (0.6-4.6); Lymphocytes % 20.1 %; Mean Corpuscular HGB Conc 30.9 g/dL (31.6-35.5); Mean Corpuscular Hemoglobin 29.9 pg (28.0-33.3); Mean Corpuscular Volume 96.8 fL (83.0-100.0); Mean Platelet Volume 9.6 fL (9.4-12.4); Monocytes # 0.6 K/mcL (0.0-1.3); Monocytes % 11.4 %; Neutrophils # 3.7 K/mcL (1.6-8.9); Platelet Count 390 K/mcL (140-400); Red Blood Count 3.08 M/mcL (3.82-4.97); Red Cell Distribution Width 17.2 % (11.5-14.5); White Blood Count 5.6 K/mcL (4.3-11.1)
[2018-08-10 06:57] LABS: BUN/Creatinine Ratio 13 (6-26); Blood Urea Nitrogen 12 mg/dL (8-23); Calcium 8.7 mg/dL (8.6-10.3); Carbon Dioxide 27 mEq/L (23-29); Chloride 107 mEq/L (98-107); Glucose 84 mg/dL (70-105); Osmolality,Calculated 285 (280-300); Sodium 138 mEq/L (136-145); eGFR For African Americans > 60 (> 60); eGFR For Non-African Americans 58 (> 60)
--- NOTE | 2018-08-10 09:32 | Internal Med Progress Note ---
Date of Encounter: 08/10/18 Time of Encounter: 09:32 - Assessment and plan (1) History of total right hip replacement Current Visit: Yes Status: Acute Assessment and plan: She has no cord or calf tenderness and is progressing well with therapy. Discharge is planned for tomorrow. (2) Hypertension Current Visit: Yes Status: Acute Assessment and plan: We will continue current regimen. Adequately controlled. Qualifiers: Hypertension type: essential hypertension Qualified Code(s): I10 - Essential (primary) hypertension (3) Diarrhea Current Visit: Yes Status: Acute Assessment and plan: Etiology is uncertain. This may be because of her malabsorption. Will follow. Will stop sennosides. Qualifiers: Diarrhea type: unspecified type Qualified Code(s): R19.7 - Diarrhea, unspecified - Subjective Interval history: Patient states she is not sure what is wrong with her. She perseverates and says I do not know how to say, probably 5 or 6 times over several points. She had a hernia for years ago and it has not been able to defecate normally, since. She states that she has incontinence, she goes all the time, and she is concerned about her bowels. She feels like her ears are full and nonfunctioning right. She is not in pain, otherwise. She seems alert and oriented in yet has some areas where she is not able to communicate. Per nursing, this is her baseline. Patient has no complaint of chest discomfort, dyspnea, orthopnea, palpitations, nausea or vomiting, constipation or diarrhea, other changes in bowel habits, difficulty with urination, rash or itching, or other new complaints, except as mentioned above. Review of systems is otherwise negative. I discussed management of patient's care with nursing staff. - Constitutional Vitals: Temp Pulse Resp BP Pulse Ox 98.4 F 95 14 135/68 92 08/10/18 07:17 08/10/18 07:17 08/10/18 07:17 08/10/18 07:17 08/10/18 07:17 Exam: Examination: (Except as mentioned above): General: In no apparent distress. Alert and oriented 3. Nondiaphoretic. Ears: Hearing is grossly normal. She has minimal wax in both canals. TMs are unremarkable without fluid or erythema. Head: Atraumatic and normocephalic. Respiratory: No use of accessory muscles. Lungs are clear throughout. Normal airflow. Cardiovascular: Regular rate and rhythm without murmur appreciated. Abdomen: Bowel sounds are normal. No hepatosplenomegaly mass or tenderness appreciated. Obese and therefore difficult to palpate deeply. Extremities: No cyanosis clubbing or edema. Skin: Warm and non-diaphoretic with no new lesions noted. Internal Medicine: Result - Labs CBC & Chem 7: 08/10/18 06:05 08/10/18 06:05 Labs: Short CBC 08/10/18 Range/Units 06:05 WBC 5.6 (4.3-11.1) K/mcL Hgb 9.2 L (11.5-15.4) g/dL Hct 29.8 L (35.3-44.9) % Plt Count 390 (140-400) K/mcL Neutrophils # 3.7 (1.6-8.9) K/mcL BMP 08/10/18 06:05 Sodium 138 Potassium 4.0 Chloride 107 Carbon Dioxide 27 BUN 12 Creatinine 0.93 Glucose 84 Calcium 8.7 Consult Discharge Plan - Plan Referrals: NONE,PCP [Primary Care Provider] -
[2018-08-10] MEDS: Cholestyramine 4 GM POWD.PACK PO SCH ×2 (10:19→16:21)
[2018-08-10] MEDS: Lactobacillus 1 EACH CAP.SPRINK PO SCH ×2 (10:20→22:34)
[2018-08-10] MEDS: Ascorbic Acid 500 MG TABLET PO SCH ×2 (10:20→22:36)
[2018-08-10] MEDS: Acetaminophen 325 MG TABLET PO PRN (10:21)
[2018-08-10] MEDS: *HR* Enoxaparin 40 MG/0.4 ML SYRINGE SQ SCH (10:21)
[2018-08-10] MEDS: Cyanocobalamin (B-12) 1,000 MCG TABLET PO SCH (10:22)
[2018-08-10] MEDS: Sennosides 8.6 MG TABLET PO SCH (10:22)
[2018-08-10] MEDS ORDERED: Preparation H Ointment 30 GM TUBE RC PRN (14:34)
[2018-08-10] MEDS: traZODone 50 MG TABLET PO SCH (22:35)
[2018-08-10] MEDS: Diphenoxylate/Atropine 1 TAB TABLET PO PRN (22:36)
[2018-08-10] MEDS: traMADol 50 MG TABLET PO PRN (22:36)
[2018-08-11] MEDS: Diphenoxylate/Atropine 1 TAB TABLET PO PRN (05:28)
[2018-08-11 07:57] VITALS: BP 124/72
[2018-08-11] MEDS: Cholestyramine 4 GM POWD.PACK PO SCH (07:59)
[2018-08-11] MEDS: Ascorbic Acid 500 MG TABLET PO SCH (09:20)
[2018-08-11] MEDS: Lactobacillus 1 EACH CAP.SPRINK PO SCH (09:20)
[2018-08-11] MEDS: *HR* Enoxaparin 40 MG/0.4 ML SYRINGE SQ SCH (09:20)
[2018-08-11] MEDS: Cyanocobalamin (B-12) 1,000 MCG TABLET PO SCH (09:25)
--- NOTE | 2018-08-11 09:38 | Discharge Summary ---
Date of Encounter: 08/11/18 Time of Encounter: 09:36 - Discharge Diagnosis (1) History of total right hip replacement Priority: Primary Status: Acute Comments: Patient had a right hip replacement performed at an [facility] and was transferred to this rehabilitation facility for further rehabilitation due to her generalized weakness secondary to her surgical recovery. Patient has progressed well with therapy. Surgical incision appears healthy and intact. Patient continues to be a fall risk requiring a walker when ambulating. We will continue her physical therapy to home health services. Patient is recommended to continue her follow-up with orthopedic surgeon and PCP after discharge (2) Hypertension Priority: Secondary Status: Chronic Comments: No acute issues during her stay of facility. Patient's vital signs have remains stable. We will continue on current medications and follow-up with PCP after discharge for further management Qualifiers: Hypertension type: essential hypertension Qualified Code(s): I10 - Essential (primary) hypertension (3) Iron deficiency anemia Priority: Secondary Status: Acute Comments: No acute issues. Patient continues with slight anemia with most recent hemoglobin 9.2. Patient is recommended to continue follow-up with PCP for further management Qualifiers: Iron deficiency anemia type: unspecified iron deficiency Qualified Code(s): D50.9 - Iron deficiency anemia, unspecified (4) VRE (vancomycin resistant enterococcus) culture positive Priority: Secondary Status: Acute Comments: Patient has a history of VRE urine colonization. No signs of infectious process during her stay at this facility. Has remained afebrile. Currently on no antibiotics. Patient recommended to follow-up with PCP for further monitoring and management Hospital course: Ms. aT is a 78 year old female, who had a right total hip replacement performed at an [facility]. Her recovery was uneventful and she was transferred this facility for further rehabilitation due to her generalized weakness. Patient remains a fall risk due to unsteady gait and uses a walker for ambulation. Patient will continue her physical therapy through home health services. Patient also has a history of a VRE colonization of urine. Patient remained afebrile during her stay and currently on no antibiotics. Patient also experienced anemia during her postoperative recovery, which has been resolving and her most recent hemoglobin was 9.2. Patient's surgical incision has remained healthy in appearance. Patient's pain is well managed with current tramadol. Patient has progressed well with physical therapy. Patient recommended to continue follow-up with orthopedic surgeon and PCP. Discharge discussed with: patient Time spent discussing smoking cessation with patient: 3 to 10 minutes - Time Spent with Patient Total time spent providing and/or coordinating discharge services: Time spent: Less than 30 minutes - Discharge Medications Prescriptions: No Action Trazodone HCl 100 mg PO HS Cyanocobalamin (B-12) [Vitamin B12] 500 mcg PO DAILY Enoxaparin [Lovenox] 40 mg SQ DAILY Acetaminophen [Tylenol] 650 mg PO QID PRN PRN Reason: Pain Ergocalciferol (VITAMIN D2) [Vitamin D2] 50,000 unit PO DAILY ALPRAZolam [Xanax 0.5 MG Tablet] 0.5 mg PO BID PRN PRN Reason: Anxiety Tramadol HCl [Ultram] 50 mg PO QID PRN PRN Reason: Pain Amoxicillin [Amoxil] 500 mg PO BID Ferrous Sulfate [Iron] 325 mg PO TID Docusate Sodium [Colace] 100 mg PO PRN PRN PRN Reason: Constipation Sennosides [Senna] 8.6 mg PO DAILY Home Medications: Trazodone HCl 100 mg PO HS 11/14/17 [History] ALPRAZolam [Xanax 0.5 MG Tablet] 0.5 mg PO BID PRN 07/31/18 [History] Acetaminophen [Tylenol] 650 mg PO QID PRN 07/31/18 [History] Amoxicillin [Amoxil] 500 mg PO BID 07/31/18 [History] Cyanocobalamin (B-12) [Vitamin B12] 500 mcg PO DAILY 07/31/18 [History] Docusate Sodium [Colace] 100 mg PO PRN PRN 07/31/18 [History] Enoxaparin [Lovenox] 40 mg SQ DAILY 07/31/18 [History] Ergocalciferol (VITAMIN D2) [Vitamin D2] 50,000 unit PO DAILY 07/31/18 [History] Ferrous Sulfate [Iron] 325 mg PO TID 07/31/18 [History] Sennosides [Senna] 8.6 mg PO DAILY 07/31/18 [History] Tramadol HCl [Ultram] 50 mg PO QID PRN 07/31/18 [History] Allergies/Adverse Reactions: Allergy/AdvReac Type Severity Reaction Status Date / Time oxycodone [Oxycodone] AdvReac Hallucinati Verified 11/14/17 13:54 ng Date of admission: 07/31/18 16:16 Primary care physician: PCP NONE Consults: 07/31/18 17:07 Consult to Occupational Therapy [CONS] Routine Comment: Evaluate, develop and implement POC Reason for Consult: eval Does patient have active BEDREST order?: No Is patient medically & hemodynamically stable?: Yes Consult to Physical Medicine/Rehab [CONS] Routine Reason for Consult: eval Time Notified: 17:08 Call Completed: Yes Consult to Physical Therapy [CONS] Routine Comment: Evaluate, develop and implement POC Reason for Consult: eval Does patient have active BEDREST order?: No Is patient medically & hemodynamically stable?: Yes Consult to Recreational Therapy [CONS] Routine Comment: Evaluate, develop and implement POC Consult to Compliance Reviewer [CONS] Routine Reason for SW Consult: d/c planning Discharging clinician: Arley Julio - Constitutional Vitals: Temp Pulse Resp BP Pulse Ox 97.6 F 75 16 124/72 94 08/11/18 07:56 08/11/18 07:56 08/11/18 07:56 08/11/18 07:56 08/11/18 07:56 General appearance: Present: cooperative, A&O X 3, pleasant, no acute distress, answers questions appropriately - Head Head exam: Present: atraumatic, normocephalic - Eye Eye exam: Present: PERRL, conjuntiva pink, sclera anicteric Pupils: Present: PERRL - Neck Neck exam general surgery: Present: supple, trachea midline. Absent: lymphadenopathy - Respiratory Respiratory exam: Present: CTAB. Absent: accessory muscle use, rales, rhonchi, wheezes - Cardiovascular Cardiovascular exam: Present: RRR, +S1, +S2. Absent: diastolic murmur, gallop, rubs, systolic murmur - GI/Abdominal GI/Abdominal exam: Present: normal bowel sounds, soft, no peritoneal signs. Absent: distended, tenderness - Extremities Exam Extremities exam: Present: warm, radial pulses palpable and symmetrical. Absent: calf tenderness, cyanotic, pedal edema Additional comments: Right hip surgical incision appears healthy and intact. No edema or ecchymosis noted - Neurological Exam Neurological exam: Present: CN II-XII intact, oriented X3, no focal deficits. Absent: pronater drift, facial droop, speech deficit - Skin Skin exam: Present: dry, intact - Patient Status Disposition: Home Health Service Condition: Good Functional capacity at discharge: uses cane/walker Overall status at discharge: patient is progressing back to baseline - Discharge Instructions Follow Up With: NONE,PCP [Primary Care Provider] - - Diet and Activity Activity: ambulate only with your walker, as per physical therapy Diet: low fat, low cholesterol, low salt diet
--- NOTE | 2018-08-11 09:48 | Physician Discharge Referral ---
Home Health/Hosp Referral Info Transfer to: Home Health Provider in Charge Post Discharge: PCP - Diagnosis (1) History of total right hip replacement Priority: Primary Status: Acute (2) Hypertension Priority: Secondary Status: Chronic (3) Iron deficiency anemia Priority: Secondary Status: Acute (4) VRE (vancomycin resistant enterococcus) culture positive Priority: Secondary Status: Acute - Respiratory Orders Smoking Cessation: Smoking cessation has been advised. For more information, call the [place] Tobacco Quit Line at 5-655-TXAF-NOW. - Diet/Nutrition Diet/Nutrition Orders: No Added Salt (GAGANDEEP), Cardiac - Activity Activity Orders: Up ad le, Walker - Services Needed Following services are medically necessary services: Nursing, Physical Therapy - Transfer Medications Home Medications: Trazodone HCl 100 mg PO HS 11/14/17 [History] ALPRAZolam [Xanax 0.5 MG Tablet] 0.5 mg PO BID PRN 07/31/18 [History] Acetaminophen [Tylenol] 650 mg PO QID PRN 07/31/18 [History] Amoxicillin [Amoxil] 500 mg PO BID 07/31/18 [History] Cyanocobalamin (B-12) [Vitamin B12] 500 mcg PO DAILY 07/31/18 [History] Docusate Sodium [Colace] 100 mg PO PRN PRN 07/31/18 [History] Enoxaparin [Lovenox] 40 mg SQ DAILY 07/31/18 [History] Ergocalciferol (VITAMIN D2) [Vitamin D2] 50,000 unit PO DAILY 07/31/18 [History] Ferrous Sulfate [Iron] 325 mg PO TID 07/31/18 [History] Sennosides [Senna] 8.6 mg PO DAILY 07/31/18 [History] Tramadol HCl [Ultram] 50 mg PO QID PRN 07/31/18 [History] Allergies/Adverse Reactions: Allergy/AdvReac Type Severity Reaction Status Date / Time oxycodone [Oxycodone] AdvReac Hallucinati Verified 11/14/17 13:54 ng Certification: Further, I certify that my clinical findings support that this patient is homebound (i.e. absences from home require considerable and taxing effort and are for medical reasons or voodoo services or infrequently or short duration when for other reasons) because: Homebound Reason: Leaving home requires considerable and taxing effort due to condition Attestation: My signature below is to certify that this patient is under my care and that I, or nurse practitioner, or a physician's educational program assistant working with me, has a [id number] encounter with this patient.
== END 2018-08-11 15:50 | disposition home health service (06) | DRG 560 ==
LOC: INPGRE 16:16